=== PATIENT | male | born 1945 | race Caucasian/White ===

== ENCOUNTER → 2016-10-23 | Outpatient (CLI) | payer MEDICARE, BC ==
[~2016-10-23] MED LIST: CIPRO 500MG TA500 MG PO; FLOMAX 0.40.4 MG/CAP PO; ZOCOR 20MG20 MG PO; ZOCOR5 MG PO
== END ==
LOC: COL.RAD 08:53
DX: N40.0 Benign prostatic hyperplasia without lower urinary tract symptoms (principal)
CPT/HCPCS: A9503; Q9967

== ENCOUNTER 2016-10-31 09:58 | Inpatient (IN) | payer MEDICARE, BC ==
[~2016-10-31] VITALS: Ht 182.9 cm; Wt 81.8 kg
[~2016-10-31 09:58] MED LIST changes: -ZOCOR 20MG20 MG PO
[2016-11-07] VITALS (12 sets, daily range): BP systolic 121–144; BP diastolic 59–78; PULSE 52–69; TEMP 97.7–98.2
[2016-11-07] MEDS ORDERED: ZOCOR 20MG20 MG PO (06:21)
[2016-11-07] MEDS ORDERED: FLOMAX 0.40.4 MG/CAP PO (06:22)
[2016-11-08] VITALS (7 sets, daily range): BP systolic 102–140; BP diastolic 50–72; PULSE 53–69; TEMP 97.6–100
[2016-11-08 07:13] LABS: BASO % 0.3 % (0.0-2.0); EOS % 0.1 % (0-4.0); GRAN # 11.8 (1.4-6.5); GRAN % 79.2 % (42.2-75.2); HEMATOCRIT 42.3 % (42.0-52.0); HEMOGLOBIN 14.2 g/dl (13.5-18.0); LYMPH # 1.7 (1.2-3.4); LYMPH % 11.5 % (20.0-51.0); MEAN CELL VOLUME 93 fl (80.0-100.0); MEAN CORPUSCULAR HEMOGLOBIN 31 pg (27.0-31.0); MEAN CORPUSCULAR HGB CONC 34 g/dl (33.0-37.0); MEAN PLATELET VOLUME 10.1 fl (7.4-10.4); MONO # 1.3 (0.1-0.6); MONO % 8.5 % (1.7-9.3); PLATELET COUNT 263 K/mm3 (130-400); RED BLOOD COUNT 4.57 M/mm3 (4.20-5.60); REDCELL DISTRIBUTION WIDTH-CV 14.3 % (11.5-14.5); WHITE BLOOD COUNT 14.9 K/mm3 (4.8-10.8)
[2016-11-08 07:17] LABS: CALCIUM 8.3 mg/dL (8.4-10.2); CREATININE, serum 0.95 mg/dL (0.66-1.25); POTASSIUM 3.9 mmol/L (3.4-5.0)
[2016-11-09 01:25] VITALS: TEMP 99
[2016-11-09 05:57] VITALS: BP 131/62; PULSE 64; TEMP 98.8
== END 2016-11-09 11:39 | disposition home or self-care (01) | DRG 707 ==
LOC: INPTSU 11-07 05:13 → SURG 11-07 05:13
PROVIDERS: Urology
PROC: 8E0W4CZ Robotic Assisted Procedure of Trunk Region, Percutaneous Endoscopic Approach (ICD-10-PCS; 2016-11-07)
PROC: 0VT04ZZ Resection of Prostate, Percutaneous Endoscopic Approach (ICD-10-PCS; principal; 2016-11-07 07:30)
PROC: 07BC4ZX Excision of Pelvis Lymphatic, Percutaneous Endoscopic Approach, Diagnostic (ICD-10-PCS; 2016-11-07 07:30)
DX: C61 Malignant neoplasm of prostate (principal); N13.8 Other obstructive and reflux uropathy; N40.1 Benign prostatic hyperplasia with lower urinary tract symptoms; R33.8 Other retention of urine
CPT/HCPCS: A9284; C1713; J0690; J1100; J1170; J1885; J2175; J2405; J2704; J3010; J7120

== ENCOUNTER → 2021-05-17 | Outpatient (CLI) | payer MEDICARE, BC ==
[~2021-05-17] MED LIST changes: +ZOCOR 20MG20 MG PO
== END ==
LOC: COL.VAS 12:14
DX: I25.2 Old myocardial infarction (principal)